=== PATIENT | male | born 1965 | race Caucasian/White ===

== ENCOUNTER → 2020-10-31 10:07 | Outpatient (BNVA) | payer OTHER, SELFPAY | PROVIDERS: PCP Internal Medicine; Visit Provider Urology ==

== ENCOUNTER → 2021-10-31 10:34 | Outpatient (BNVA) | payer OTHER, SELFPAY | PROVIDERS: PCP Internal Medicine; Visit Provider Urology | DX: N40.0 Benign prostatic hyperplasia without lower urinary tract symptoms (principal); R68.82 Decreased libido; C62.90 Malignant neoplasm of unspecified testis, unspecified whether descended or undescended; R97.20 Elevated prostate specific antigen [PSA] | CPT/HCPCS: 51798 ==

== ENCOUNTER 2021-11-13 13:31 | Outpatient (AMB) | payer OTHER, SELFPAY ==
--- NOTE | 2021-11-13 08:21 | A.OFFVIS_ITS ---
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 Accompanied by partner. They are a patient of Dr House. They are seen in the office today for the following urologic conditions. - elevated PSA - testicular cancer - BPH Elevated PSA/Abnormal BETTY:? Current urination involves some degree of urgency Does have high coffee and chocolate intake Remains on prostate combination therapy Will try reducing stimulants Could reduce tamsulosin if responds well to stimulants Has had PSA checked in [place] last PSA 1.9 Discussed targeted biopsy process Continue yearly review ?at 22 had testicular cancer with radiation ?At 45 diagnosed with multiple schwannoma's requiring intermittent resection - followed at [facility] for management, locally with Dr Rea ? Current management is?prostate combination therapy - finasteride and tamsulosin ? Laboratory investigations include?a total PSA evaluation ?02/05 4.7 ?12/07 4.2 ?07/08 4.4, 07/10 1.8, 09/10 2.3 ? Imaging investigations include? a prostate MRI ?Yes 05/09 prostate 45gm ? Individualized Prostate Cancer Risk Calculator?5-10% high risk, Discussion regarding TRUS biopsy performed.? A TRUS biopsy? has ?been performed and is negative 05/09 - 03/02 cores ? Associated conditions? diabetes ?No ? dyslipidemia ?No ? dysuria ?No ? erectile dysfunction ?No ? hematuria ?No ? hypertension ?No ? prostatitis ?No ? renal insufficieny ?No ? urinary retention ?No ? urinary tract infections ?No ? Therapeutic plan will be?continued surveillance.? PFSH Medical History Testicular cancer Weak urinary stream Nocturia Benign prostatic hyperplasia without lower urinary tract symptoms Elevated PSA Surgical History History of surgery Family History Father No problems noted. Mother No problems noted. Social History Patient Tobacco Use Status: Never used Tobacco Review of Systems Const All systems reviewed & are unremarkable except as noted in HPI and below Reports no additional complaints Resp Reports no additional complaints GI Reports no additional complaints Reports as per HPI Musc Reports no additional complaints Physical Exam Telemedicine evaluation Appropriate responses Regular breathing rate and rhythm HEENT Head: Yes normal to inspection Ears: hearing grossly normal bilaterally Eyes General: appearance normal, both eyes and all related structures Neck Neck: Yes normal visual inspection Chest Chest palpation & inspection: normal inspection of the chest Resp Effort & Inspection: normal respiratory effort and able to speak in complete sentences Assessment & Plan Assessment & Plan (1) Testicular cancer: Code(s): C62.90 - Malignant neoplasm of unspecified testis, unspecified whether descended or undescended (2) Erectile dysfunction: Code(s): N52.9 - Male erectile dysfunction, unspecified (3) Low libido: Code(s): R68.82 - Decreased libido Plan planned Patient Instructions: Imaging studies, laboratory and physical exam results were discussed and reviewed in detail. No major barriers to patient understanding were identified. An opportunity to ask questions regarding the treatment plan was provided. All questions were answered. The patient expressed understanding and agreement with the above treatment plan. The patient is aware they should contact our office by phone for worsening of their current condition or the appearance of new urologic symptoms. Compliance is encouraged with any medications and followup testing that is ordered. It is a privilege to participate in the urologic care of your patient. If you have any questions or concerns regarding treatment for the above conditions, or other urologic issues, please do not hesitate to contact me. The office telephone contact is [phone]. This note is constructed using voice recognition software. While every effort has been made to ensure accuracy engineer booster and exhauster errors may have been included. Yours sincerely, Dr Yeison Carrasco MD, LAV[facility] - Urology Providers of Expert, Compassionate Care for the Genitourinary System Telehealth Telehealth Location of provider rendering services: practice address Location of patient: address on file Patient Identification confirmed using: Name, : Yes Telehealth method: voice only Patient verbally consented to treatment: Yes Patient verbally consented to billing insurance company: Yes Patient informed of any privacy concerns related to visit: Yes Coding Level of Care Code Tele Est Pt Level 3 (81153) Diagnoses Testicular cancer C62.90 Erectile dysfunction N52.9 Low libido R68.82
== END 2021-11-13 14:59 | disposition home or self-care (01) ==
LOC: HO.HUSH 13:31
PROVIDERS: PCP Internal Medicine; Visit Provider Urology
DX: C62.90 Malignant neoplasm of unspecified testis, unspecified whether descended or undescended (principal); N52.9 Male erectile dysfunction, unspecified; R68.82 Decreased libido
CPT/HCPCS: 99499

== ENCOUNTER 2022-11-25 11:51 | Outpatient (REF) | payer OTHER, SELFPAY ==
[2022-11-25 14:00] LABS: PSA,Total (Free>4and<10) 2.71 ng/mL (0.00-4.00)
[2022-11-30 14:48] LABS: Testosterone, Free 88.9 pg/mL (35.0-155.0); Testosterone, Total 753 ng/dL (250-1100)
== END 2022-11-25 11:52 | disposition home or self-care (01) ==
LOC: HO.HMGCLDS 11:51
PROVIDERS: Visit Provider Nurse Practitioner Family
DX: Z12.5 Encounter for screening for malignant neoplasm of prostate (principal); N40.0 Benign prostatic hyperplasia without lower urinary tract symptoms
CPT/HCPCS: 36415; 84153; 84402; 84403

== ENCOUNTER 2022-12-22 12:01 | Outpatient (AMB) | payer OTHER, SELFPAY ==
--- NOTE | 2022-12-22 12:03 | MHC.OFFVIS ---
Intake Intake Visit Reasons: 4 wk follow up/ PSA Labs(set) Intake Note: Patient is present for labs follow up (psa 2.71) (testosterone 753) Urology Medications: finasteride, tamsulosin Blood Thinner: none Dermatopathologist Required: No Accompanied by: Self / Same As Patient Allergies penicillin G Allergy (Unknown, Verified 12/22/22 12:05) Unknown HPI HPI Comments History of Present Illness Details Marino is a very pleasant male. He is a patient of patient of Dr. House. He is seen for the following urologic conditions - testicular cancer - elevated PSA - BPH Stable labs Question of erectile issues Trial daily tadalafil Prescription provided He will call useful Continue with finasteride every other day Elevated PSA/Abnormal BETTY:? Current urination involves some degree of urgency Does have high coffee and chocolate intake Remains on prostate combination therapy Will try reducing stimulants Could reduce tamsulosin if responds well to stimulants Has had PSA checked in [place] last PSA 1.9 Discussed targeted biopsy process Continue yearly review ?at 22 had testicular cancer with radiation ?At 45 diagnosed with multiple schwannoma's requiring intermittent resection - followed at [facility] for management, locally with Dr Rea ? Current management is?prostate combination therapy - finasteride and tamsulosin ? Laboratory investigations include?a total PSA evaluation ?02/05 4.7,?12/07 4.2, 07/08 4.4, 07/10 1.8, 09/10 2.3, 12/12 T 753 PSA 2.7 ? Imaging investigations include? a prostate MRI ?Yes 05/09 prostate 45gm ? Individualized Prostate Cancer Risk Calculator?5-10% high risk, Discussion regarding TRUS biopsy performed.? A TRUS biopsy? has ?been performed and is negative 05/09 - 03/02 cores ? Therapeutic plan will be?continued surveillance.? [facility] Medical History Testicular cancer Weak urinary stream Nocturia Benign prostatic hyperplasia without lower urinary tract symptoms Elevated PSA Surgical History History of surgery Family History Father No problems noted. Mother No problems noted. Social History Patient Tobacco Use Status: Never used Tobacco Review of Systems Const Denies chills and Denies fever(s) Card Reports no additional complaints and Denies syncope Resp Denies cough GI Denies abdominal pain and Denies heartburn Reports as per HPI and Denies change in libido Neuro Denies syncope Psych Denies change in libido Endo Denies change in libido Physical Exam Const General: cooperative, healthy appearing, comfortable and no acute distress Orientation/consciousness: patient oriented x3 HEENT Face and sinus: Yes normal facial exam Mouth: moist mucous membranes Neck Neck: Yes normal visual inspection, Yes full ROM and Yes trachea midline Chest Chest palpation & inspection: normal inspection of the chest Resp Effort & Inspection: normal respiratory effort, able to speak in complete sentences and no respiratory distress GI Inspection: Yes normal to inspection Back/Spine/Pelvis Cervical Spine: normal cervical lordosis Thoracic/Lumbar Spine: thoracic and lumbar spine normal to inspection Skin General skin exam: no rashes or lesions noted Neuro General: patient oriented x3, gait normal, tone normal and moves all extremities Extrem General: Yes normal to inspection and Yes capillary refill normal Results AMB Urinalysis, Automated UA Leukoctes 0 Michelle/uL Last Edit by Chhaya Neely on 12/22/22 13:36 UA Nitrite Negative Last Edit by Chhaya Neely on 12/22/22 13:36 UA Urobilinogen 0.2 mg/dL Last Edit by Chhaya Neely on 12/22/22 13:36 UA Protein 0 mg/dL Last Edit by Chhaya Neely on 12/22/22 13:36 UA pH 6.5 Last Edit by Chhaya Neely on 12/22/22 13:36 UA Blood 0 Gavin/uL Last Edit by Chhaya Neely on 12/22/22 13:36 UA Specific Nettie 1.010 Last Edit by Chhaya Neely on 12/22/22 13:36 UA Ketone Negative Last Edit by Chhaya Neely on 12/22/22 13:36 UA Bilirubin 0 mg/dL Last Edit by Chhaya Neely on 12/22/22 13:36 UA Glucose 0 mg/dL Last Edit by Chhaya Neely on 12/22/22 13:36 Results Reviewed Results Reviewed: Laboratory Last Values Urine pH (Auto) 6.5 12/22/22 13:34 Specific Nettie (Auto) 1.010 12/22/22 13:34 Urine Protein (Auto) 0 mg/dL 12/22/22 13:34 Glucose (UA)(Auto) 0 mg/dL 12/22/22 13:34 Urine Ketones (Auto) Negative 12/22/22 13:34 Urine Blood (Auto) 0 Gavin/uL 12/22/22 13:34 Urine Nitrite (Auto) Negative 12/22/22 13:34 Urine Bilirubin (Auto) 0 mg/dL 12/22/22 13:34 Urine Urobilinogen (Auto) 0.2 mg/dL 12/22/22 13:34 Leukocyte Esterase (Auto) 0 Michelle/uL 12/22/22 13:34 Assessment & Plan Assessment & Plan (1) Erectile dysfunction: Code(s): N52.9 - Male erectile dysfunction, unspecified (2) Testicular cancer: Code(s): C62.90 - Malignant neoplasm of unspecified testis, unspecified whether descended or undescended (3) Benign prostatic hyperplasia without lower urinary tract symptoms: Code(s): N40.0 - Benign prostatic hyperplasia without lower urinary tract symptoms Plan Trial daily tadalafil Orders: Orders AMB Urinalysis Automated 12/22/22 Z13.9 - Encounter for screening, unspecified Patient Instructions: Imaging studies, laboratory and physical exam results were discussed and reviewed in detail. No major barriers to patient understanding were identified. An opportunity to ask questions regarding the treatment plan was provided. All questions were answered. The patient expressed understanding and agreement with the above treatment plan. The patient is aware they should contact our office by phone for worsening of their current condition or the appearance of new urologic symptoms. Compliance is encouraged with any medications and followup testing that is ordered. It is a privilege to participate in the urologic care of your patient. If you have any questions or concerns regarding treatment for the above conditions, or other urologic issues, please do not hesitate to contact me. The office telephone contact is [phone]. This note is constructed using voice recognition software. While every effort has been made to ensure accuracy distillery supervisor errors may have been included. Yours sincerely, Dr Yeison Carrasco MD, [facility] - Urology Providers of Expert, Compassionate Care for the Genitourinary System Coding Level of Care Code Est Pt Level 4 (04467) Diagnoses Erectile dysfunction N52.9 Testicular cancer C62.90 Benign prostatic hyperplasia without lower urinary tract symptoms N40.0
== END 2022-12-22 13:11 | disposition home or self-care (01) ==
PROVIDERS: PCP Internal Medicine; Visit Provider Urology
DX: N52.9 Male erectile dysfunction, unspecified (principal); C62.90 Malignant neoplasm of unspecified testis, unspecified whether descended or undescended; N40.0 Benign prostatic hyperplasia without lower urinary tract symptoms
CPT/HCPCS: 99214

== ENCOUNTER → 2022-12-22 12:01 | Outpatient (BNVA) | payer OTHER, SELFPAY | PROVIDERS: PCP Internal Medicine; Visit Provider Nurse Practitioner Family | DX: R97.20 Elevated prostate specific antigen [PSA] (principal); C62.90 Malignant neoplasm of unspecified testis, unspecified whether descended or undescended; N40.0 Benign prostatic hyperplasia without lower urinary tract symptoms | CPT/HCPCS: 81003 ==

== ENCOUNTER 2023-02-24 13:53 | Outpatient (AMB) | payer OTHER, SELFPAY ==
--- NOTE | 2023-02-24 13:56 | A.OFFVIS_ITS ---
Intake Intake Visit Reasons: 6M PSA(set) Intake Note: Patient is Present for Follow Up PSA Urology Medication: Finasteride (3 days a week), Tamsulosin Antibiotic Allergies: Penicillin Blood Thinners: None Allergies penicillin G Allergy (Unknown, Verified 12/22/22 12:05) Unknown HPI HPI Comments History of Present Illness Details Marino is a very pleasant male. He is a patient of Dr House. He is seen for the following urologic conditions. - elevated PSA - testicular cancer - lower urinary tract symptoms - Discussion today about PSA He had some recent variability up to 3.4 but repeat testing showed 2.5 We discussed variability of PSA Continue with finasteride t.i.d. Will also try coming off tamsulosin 2nd issue erectile dysfunction Trial of daily tadalafil Prescription provided Prior T labs 12/12 T 753, FT 89 PSA 2.7 Elevated PSA/Abnormal BETTY:? Current urination involves some degree of urgency Does have high coffee and chocolate intake Remains on prostate combination therapy Will try reducing stimulants Could reduce tamsulosin if responds well to stimulants Has had PSA checked in [place] last PSA 1.9 Discussed targeted biopsy process Continue yearly review ?at 22 had testicular cancer with radiation ?At 45 diagnosed with multiple schwannoma's requiring intermittent resection - followed at [facility] for management, locally with Dr Rea ? Current management is?prostate combination therapy - finasteride and tamsulosin ? Laboratory investigations include?a total PSA evaluation ?02/05 4.7 ?12/07 4.2 ?07/08 4.4, 07/10 1.8, 09/10 2.3 ? Imaging investigations include? a prostate MRI ?Yes 05/09 prostate 45gm ? Individualized Prostate Cancer Risk Calculator?5-10% high risk, Discussion regarding TRUS biopsy performed.? A TRUS biopsy? has ?been performed and is negative 05/09 - 03/02 cores ? Therapeutic plan will be?continued surveillance.? [facility] Medical History Testicular cancer Weak urinary stream Nocturia Benign prostatic hyperplasia without lower urinary tract symptoms Elevated PSA Surgical History History of surgery Family History Father No problems noted. Mother No problems noted. Social History Patient Tobacco Use Status: Never used Tobacco Review of Systems Const Denies chills and Denies fever(s) Card Reports no additional complaints and Denies syncope Resp Denies cough GI Denies abdominal pain and Denies heartburn Reports as per HPI and Denies change in libido Neuro Denies syncope Psych Denies change in libido Endo Denies change in libido Physical Exam Const General: cooperative, healthy appearing, comfortable and no acute distress Orientation/consciousness: patient oriented x3 HEENT Face and sinus: Yes normal facial exam Mouth: moist mucous membranes Neck Neck: Yes normal visual inspection, Yes full ROM and Yes trachea midline Chest Chest palpation & inspection: normal inspection of the chest Resp Effort & Inspection: normal respiratory effort, able to speak in complete sentences and no respiratory distress GI Inspection: Yes normal to inspection Back/Spine/Pelvis Cervical Spine: normal cervical lordosis Thoracic/Lumbar Spine: thoracic and lumbar spine normal to inspection Skin General skin exam: no rashes or lesions noted Neuro General: patient oriented x3, gait normal, tone normal and moves all extremities Extrem General: Yes normal to inspection and Yes capillary refill normal Assessment & Plan Assessment & Plan (1) Erectile dysfunction: Code(s): N52.9 - Male erectile dysfunction, unspecified Plan Six month follow-up Orders: Orders Prostate Specific Antigen 6 Months R97.20 - Elevated prostate specific antigen [PSA] Medications: New tadalafil 5 mg PO DAILY 30 days 30 tabs 1RF sexual activity N52.9 - Male erectile dysfunction, unspecified Patient Instructions: Imaging studies, laboratory and physical exam results were discussed and reviewed in detail. No major barriers to patient understanding were identified. An opportunity to ask questions regarding the treatment plan was provided. All questions were answered. The patient expressed understanding and agreement with the above treatment plan. The patient is aware they should contact our office by phone for worsening of their current condition or the appearance of new urologic symptoms. Compliance is encouraged with any medications and followup testing that is ordered. It is a privilege to participate in the urologic care of your patient. If you have any questions or concerns regarding treatment for the above conditions, or other urologic issues, please do not hesitate to contact me. The office telephone contact is [phone]. This note is constructed using voice recognition software. While every effort h as been made to ensure accuracy human factors specialist errors may have been included. Yours sincerely, Dr Yeison Carrasco MD, [facility] - Urology Providers of Expert, Compassionate Care for the Genitourinary System Coding Level of Care Code Est Pt Level 4 (50201) Diagnoses Erectile dysfunction N52.9
== END 2023-02-24 14:44 | disposition home or self-care (01) ==
PROVIDERS: PCP Internal Medicine; Visit Provider Urology
DX: N52.9 Male erectile dysfunction, unspecified (principal)
CPT/HCPCS: 99214

== ENCOUNTER → 2023-02-24 13:53 | Outpatient (BNVA) | payer OTHER, SELFPAY | PROVIDERS: PCP Internal Medicine; Visit Provider Urology ==

== ENCOUNTER 2023-09-14 13:50 | Outpatient (AMB) | payer BC, SELFPAY ==
--- NOTE | 2023-09-14 13:44 | MHC.OFFVIS ---
Intake Visit Reasons: 6m/PSA(set) Intake Note: Patient is present for 6 month f/u and PSA Urology Medication:tamsulosin,finasteride,tadalafil Antibiotic Allergy:penicillin Blood Thinner:none Public Administration Teacher Required: No Allergies penicillin G Allergy (Unknown, Verified 09/14/23 13:47) Unknown Medication List - Last Reconciled 09/14/23 by Yeison Carrasco MD albuterol sulfate 90 mcg/actuation 2 puffs inhalation QID PRN finasteride 5 mg PO DAILY 90 days gabapentin 300 mg PO TID hydrocodone-acetaminophen 5-325 mg 1 tab PO DAILY PRN lorazepam 0.5 mg PO BEDTIME PRN rosuvastatin 20 mg PO DAILY tadalafil 5 mg PO DAILY 90 days tadalafil 10 mg PO ONCE PRN 30 days tamsulosin 0.4 mg PO BEDTIME 90 days HPI Comments Details: Marino is a very pleasant male. He is a patient of Dr House. He is seen for the following urologic conditions. - elevated PSA - testicular cancer - lower urinary tract symptoms Telemedicine Evaluation 15 min Consultation DoxSun Number Veto Video PSA remains low. Finasteride 3 times per week Good response to daily tadalafil. Interested in trying on demand. Has had increased nicotine intake. Discussed moderating. Prior T labs 12/12 T 753, FT 89 PSA 2.7 Elevated PSA/Abnormal BETTY:? Current urination involves some degree of urgency Does have high coffee and chocolate intake Remains on prostate combination therapy Will try reducing stimulants Could reduce tamsulosin if responds well to stimulants Has had PSA checked in [place] last PSA 1.9 Discussed targeted biopsy process Continue yearly review ?at 22 had testicular cancer with radiation ?At 45 diagnosed with multiple schwannoma's requiring intermittent resection - followed at [facility] for management, locally with Dr Rea ? Current management is?prostate combination therapy - finasteride and tamsulosin ? Laboratory investigations include?a total PSA evaluation ?02/05 4.7, 12/07 4.2, 07/08 4.4, 07/10 1.8, 09/10 2.3, 09/12 2.3 ? Imaging investigations include? a prostate MRI ?Yes 05/09 prostate 45gm ? Individualized Prostate Cancer Risk Calculator?5-10% high risk, Discussion regarding TRUS biopsy performed.? A TRUS biopsy? has ?been performed and is negative 05/09 - 03/02 cores ? Therapeutic plan will be?continued surveillance.? PFSH Medical History Testicular cancer Weak urinary stream Nocturia Benign prostatic hyperplasia without lower urinary tract symptoms Elevated PSA Surgical History History of surgery Family History Father No problems noted. Mother No problems noted. Social History Patient Tobacco Use Status: Never used Tobacco Review of Systems Const All systems reviewed & are unremarkable except as noted in HPI and below Reports no additional complaints Resp Reports no additional complaints GI Reports no additional complaints Reports as per HPI Musc Reports no additional complaints Physical Exam Telemedicine evaluation Appropriate responses Regular breathing rate and rhythm HEENT Head: Yes normal to inspection Ears: hearing grossly normal bilaterally Eyes General: appearance normal, both eyes and all related structures Neck Neck: Yes normal visual inspection Chest Chest palpation & inspection: normal inspection of the chest Resp Effort & Inspection: normal respiratory effort and able to speak in complete sentences Telehealth Telehealth Telehealth Platform: [facility] Location of provider rendering services: practice address Location of patient: address on file Patient Identification confirmed using: Name, : Yes Telehealth method: video Patient verbally consented to treatment: Yes Patient verbally consented to billing insurance company: Yes Patient informed of any privacy concerns related to visit: Yes Minutes spent on Phone/Video with Pt.: 15 Assessment & Plan Assessment & Plan (1) Erectile dysfunction: Code(s): N52.9 - Male erectile dysfunction, unspecified Category: Medical (2) Elevated PSA: Code(s): R97.20 - Elevated prostate specific antigen [PSA] Category: Medical Plan Six-month follow-up PSA Orders: Orders Prostate Specific Antigen 6 Months R97.20 - Elevated prostate specific antigen [PSA] Medications: New tadalafil as needed 10 mg PO ONCE 30 days PRN 30 tabs 1RF sexual activity N52.9 - Male erectile dysfunction, unspecified Changed From tadalafil 5 mg PO DAILY 30 days 30 tabs 5RF sexual activity N52.9 - Male erectile dysfunction, unspecified To tadalafil 5 mg PO DAILY 90 days 90 tabs 1RF sexual activity N52.9 - Male erectile dysfunction, unspecified Patient Instructions: Imaging studies, laboratory and physical exam results were discussed and reviewed in detail. No major barriers to patient understanding were identified. An opportunity to ask questions regarding the treatment plan was provided. All questions were answered. The patient expressed understanding and agreement with the above treatment plan. The patient is aware they should contact our office by phone for worsening of their current condition or the appearance of new urologic symptoms. Compliance is encouraged with any medications and followup testing that is ordered. It is a privilege to participate in the urologic care of your patient. If you have any questions or concerns regarding treatment for the above conditions, or other urologic issues, please do not hesitate to contact me. The office telephone contact is [phone]. This note is constructed using voice recognition software. While every effort has been made to ensure accuracy solar energy specialist errors may have been included. Yours sincerely, Dr Yeison Carrasco MD, [facility] - Urology Providers of Expert, Compassionate Care for the Genitourinary System Coding Level of Care Code Tele Est Pt Level 3 (01168) Diagnoses Erectile dysfunction N52.9 Elevated PSA R97.20
--- OUTSIDE RECORDS SUMMARY | 2023-09-16 08:03 | XMS_ITS | Continuity of Care Document ---
Author Organization [facility] Address [address] [place] [address]- Care Team Providers Care Flower Buncher Or Picker Name Role Phone Haley House MD Primary Care Physician Encounter [facility] Date(s): 02/15/23 - 03/17/23 [facility] [address] [place] [address]- Attending Physician: Trinh Solis Admitting Physician: Trinh Solis Referring Physician: AdmtrTrinh Allergies, Adverse Reactions, Alerts Substance Reaction Severity Status penicillin stomach upset Active Latex itching Active Immunizations Given and Recorded Vaccine Date Status Refusal Reason influenza virus vaccine, inactivated 02/24/22 Amador rded influenza virus vaccine, inactivated 02/10/20 Amador rded influenza virus vaccine, inactivated 02/09/19 Give n influenza virus vaccine, inactivated 1 02/07/18 Gi sanjeev influenza virus vaccine, inactivated 01/22/17 Give n influenza virus vaccine, inactivated 2 12/20/15 Gi sanjeev influenza virus vaccine, inactivated 03/18/15 Amador rded influenza virus vaccine, inactivated 02/19/15 Amador rded influenza virus vaccine, inactivated 03/14/13 Amador rded influenza virus vaccine, inactivated 12/12/10 Give n influenza virus vaccine, inactivated 01/18/09 Give n zoster vaccine, inactivated 03/05/21 Recorded zoster vaccine, inactivated 10/10/20 Recorded SARS-CoV-2 (COVID-19) mRNA BNT-162b2 vac 02/28/21 Recorded SARS-CoV-2 (COVID-19) mRNA BNT-162b2 vac 06/04/20 Recorded SARS-CoV-2 (COVID-19) mRNA BNT-162b2 vac 05/12/20 Recorded tetanus/diphtheria/pertussis, acel(Tdap) 10/10/20 Recorded tetanus/diphtheria/pertussis, acel(Tdap) 07/03/10 Given Influenza Virus Vaccine (oldterm) 02/09/20 Recorde d Afluria (oldterm) 3 12/26/13 Recorded FluLaval (oldterm) 4 02/22/12 Given FluLaval (oldterm) 12/19/09 Given Pneumovax 23 (oldterm) 12/12/10 Given hepatitis B adult vaccine 07/03/10 Given Hepatitis B Vaccine (old term) 5 11/01/07 Given Hepatitis B Vaccine (old term) 09/27/07 Given 1Result Comment: [02/07/2018] [facility] [id number] 2Result Comment: [12/20/2015] [facility] 3Result Comment: [12/28/2013] [facility] 4Admin Note: Gave the VIS 09-21-2011 5Admin Note: [employer] Medications acetaminophen-HYDROcodone 325 mg-5 mg oral tablet 1 tablet, By Mouth, Daily, PRN Pain , Severe, CSA PRN, # 30 tablet, 0 Refills, Maintenance, 01/29/23 10:05:00 EST, [facility]/pharmacy #[id number], PARTIAL FILL UPON PATIENT REQUEST, 1 tablet By Mouth Daily,PRN:Pain , Severe,Instr:CSA PRN, 177.8, cm, 01/06/23 15:0... Start Date: 01/29/23 Status: Ordered Albuterol (Eqv-ProAir HFA) 90 mcg/inh inhalation aerosol 2 puffs, Inhalation, 4 times a day, PRN NEEDED FOR WHEEZING, # 8.5 each, 5 Refills, Maintenance,03/16/23 15:34:00 EST, [id number], 30, INHALE 2 PUFFS BY MOUTH 4 TIMES A DAY NEEDED FOR WHEEZING, 177.8, cm, 01/06/23 15:01:00 EDT, Height, 79.... Start Date: 03/16/23 Status: Ordered aspirin 81 mg oral capsule 1 capsule = 81 mg, By Mouth, Daily, # 30 capsule, 0 Refills, Maintenance, 09/05/21 10:45:00 EDT, Partial fill upon patient request if the prescription is for a schedule II opioid drug. Start Date: 09/05/21 Status: Ordered B 100 Complex By Mouth, Daily, 0 Refills, Maintenance, 09/19/21 10:17:00 EDT, Partial fill upon patient request if the prescription is for a schedule II opioid drug. Start Date: 09/19/21 Status: Ordered finasteride 5 mg oral tablet 1 tablet = 5 mg, By Mouth, Daily at bedtime, # 90 tablet, 3 Refills, Maintenance, 07/09/22 9:11:00 EDT, Tablet, [facility]/pharmacy #[id number], Partial fill upon patient request if the prescription is for a schedule II opioid drug., 177.8, cm, 07/09/22 8:44:00 ED... Start Date: 07/09/22 Status: Ordered Flovent HFA 110 mcg/inh inhalation aerosol 2 puffs, Inhalation, 2 times a day, # 1 each, 11 Refills, Maintenance, 01/06/23 15:38:00 EDT, Aerosol, [facility]/pharmacy #[id number], Partial fill upon patient request if the prescription is for a schedule II opioid drug., 177.8, cm, 01/06/23 15:01:00 EDT, Heigh... Start Date: 01/06/23 Status: Ordered gabapentin 300 mg oral capsule 1, capsule, By Mouth, 3 times a day, # 270 capsule, Refills 11, Tot. Refills 11, Maintenance, 01/28/23 17:35:00 EST, Route to Pharmacy Electronically, [facility]/pharmacy #[id number], 177.8, cm, 01/06/23 15:01:00EDT, Height, 79.7, kg, 08/19/22 8:33:00 EDT, Dry We... Start Date: 01/28/23 Status: Ordered ibuprofen 800 mg oral tablet 800 mg, 1, tablet, By Mouth, 3 times a day, # 90 tablet, Refills 0, Maintenance, 04/26/20 13:14:00 EST, Partial fill upon patient request if the prescription is for a schedule II opioid drug. Start Date: 04/26/20 Status: Ordered LORazepam 0.5 mg oral tablet See Instructions, TAKE 1 TABLET BY MOUTH AT BEDTIME; CSA PRN, # 30 tablet, 0 Refills, Soft Stop, 01/29/23 10:04:00 EST, [facility]/pharmacy #[id number], 177.8, cm, 01/06/23 15:01:00 EDT, Height, 79.7, kg, 08/19/22 8:33:00 EDT, Dry Weight Start Date: 01/29/23 Status: Ordered Pulmicort Respules 0.5 mg/2 mL inhalation suspension 0.5 mg, 2, mL, Neb, 2 times a day, # 120 mL, Refills 3, Tot. Refills 3, Maintenance, 01/06/23 15:41:00 EDT, Suspension, Route to Pharmacy Electronically, [id number], [facility]/pharmacy #[id number], 177.8, cm, 01/06/23 15:01:00 EDT, Heigh... Start Date: 01/06/23 Status: Ordered Readi-Cat 2 Smoothie Banana 2% oral suspension See Instructions, 1st bottle 6 hours prior and 2 nd bottle 90 min prior to scan, # 2 each, 0 Refills, Maintenance, 01/14/23 13:11:00 EDT, [facility]/pharmacy #[id number], Partial fill upon patient request if the prescription is for a schedule II opioid drug., 1st... Start Date: 01/14/23 Status: Ordered rosuvastatin 20 mg oral tablet 1 tablet = 20 mg, By Mouth, Daily at bedtime, # 90 tablet, 3 Refills, Maintenance, 07/09/22 9:08:00EDT, Tablet, [facility]/pharmacy #0517, Partial fill upon patient request if the prescription is for a schedule II opioid drug., 177.8, cm, 07/09/22 8:44:00 E... Start Date: 07/09/22 Status: Ordered Tylenol 325 mg oral tablet 975 mg, 3, tablet, By Mouth, Every 6 hours, PRN, Refills 0, Maintenance, Pain , Mild, 11/29/19 8:01:00 EDT Start Date: 11/29/19 Status: Ordered Problem List Condition Confirmation Course Effective Dates Status Health Status Informant Abdominal pain Confirmed Active Asthma Confirmed Stable Active Back pain Confirmed 10/20/10 Active Prostatic hypertrophy Confirmed Active Coronary artery disease Confirmed Active Mucoid cyst, joint distal phalynx right thumb Confirmed 05/18/18 Active History of right shoulder replacement Confirmed Active Heartburn Confirmed Active Controlled Substance Agreement Confirmed Active History of basal cell carcinoma Confirmed Active History of testicular cancer Confirmed Active Hypercholesterolemia Confirmed 09/27/07 Active Seasonal allergic rhinitis Confirmed Active Thyroid nodule Confirmed Active Social History Social History Type Response Smoking Status Never smoker entered on: 04/14/13 Sex Patient Care team information Care Team Personnel Name: Harsh SOLANO, Haley Bowman Position: [facility] Physician - Primary Care Member Role: PCP Address: Address: [address] [place] [address] [place] [address]- Name: Salvador Patiño MD Position: [facility] Physician - Oncology Member Role: Lifetime Consulting Physician Address: Address: [address] [place] [address] for Cancer Care [facility] [place] [address]- Care Team Related Persons Name: ANGELIA PEÑA Address: home [address] [place] [address] Name: GRACE GARZA Address: home [address] [place] [address] Name: GRACE VERNON
--- OUTSIDE RECORDS SUMMARY | 2023-09-16 08:03 | XMS_ITS | Continuity of Care Document ---
Author Organization [facility] Address [address] [place] [address]- Care Team Providers Care Linux Server Engineer Name Role Phone Haley House MD Primary Care Physician [phone] Encounter [facility] Date(s): 12/15/21 - 01/14/22 [facility] [address] [place] [id number] Attending Physician: Admtr, Trinh Admitting Physician: AdmtrTrinh Referring Physician: Admtr, Ar8 Allergies, Adverse Reactions, Alerts Substance Reaction Severity Status penicillin stomach upset Active Latex itching Active Immunizations Given and Recorded Vaccine Date Status Refusal Reason zoster vaccine, inactivated 03/05/21 Recorded SARS-CoV-2 (COVID-19) mRNA BNT-162b2 vac 02/28/21 Recorded SARS-CoV-2 (COVID-19) mRNA BNT-162b2 vac 06/04/20 Recorded SARS-CoV-2 (COVID-19) mRNA BNT-162b2 vac 05/12/20 Recorded tetanus/diphtheria/pertussis, acel(Tdap) 10/10/20 Recorded tetanus/diphtheria/pertussis, acel(Tdap) 07/03/10 Given influenza virus vaccine, inactivated 02/10/20 Amador rded [...] influenza virus vaccine, inactivated 01/18/09 Give n Influenza Virus Vaccine (oldterm) 02/09/20 Recorde d Afluria (oldterm) 3 12/26/13 Recorded FluLaval (oldterm) 4 02/22/12 Given FluLaval (oldterm) 12/19/09 Given Pneumovax 23 (oldterm) 12/12/10 Given hepatitis B adult vaccine 07/03/10 Given Hepatitis B Vaccine (old term) 5 11/01/07 Given Hepatitis B Vaccine (old term) 09/27/07 Given 1Result Comment: [02/07/2018] [facility] [id number] 2Result Comment: [12/20/2015] [facility] 3Result Comment: [12/28/2013] [facility] 4Admin Note: Gave the VIS 09-21-2011 5Admin Note: [employer] Medications acetaminophen-HYDROcodone 325 mg-5 mg oral tablet 1 tablet, By Mouth, Daily, PRN Pain , Severe, CSA PRN, # 30 tablet, 0 Refills, Maintenance, 01/02/22 17:48:00 EDT, [id number], PARTIAL FILL UPON PATIENT REQUEST, 1 tablet By Mouth Daily,PRN:Pain , Severe,Instr:CSA PRN, 01/02/22, 177.8, cm, ... Start Date: 01/02/22 Status: Ordered Albuterol (Eqv-ProAir HFA) 90 mcg/inh inhalation aerosol 2 puffs, Inhalation, 4 times a day, PRN NEEDED FOR WHEEZING, # 18 each, 5 Refills, 10/27/21 17:00:00 EDT, [facility]/pharmacy #0517, 16, 2 puffs Inhalation 4 times a day,PRN: NEEDED FOR WHEEZING, 177.8, cm, 09/19/21 12:16:00 EDT, Height, 97.6, kg, 09/19... Start Date: 10/27/21 Status: Ordered aspirin 81 mg oral capsule [...] Mouth, Daily at bedtime, # 90 tablet, 0 Refills, Maintenance, 02/09/19 10:06:15EST, Tablet Start Date: 02/09/19 Status: Ordered gabapentin 300 mg oral capsule 1, capsule, By Mouth, 3 times a day, # 270 capsule, Refills 1, Route to Pharmacy Electronically, [facility] STORE 40435, 177.8, cm, 08/20/21 12:43:00 EDT, Height, 80.5, kg, 11/29/19 17:05:00 EDT, Dry Weight Start Date: 08/29/21 Status: Ordered ibuprofen 800 mg oral tablet [...] # 30 tablet, 0 Refills, Soft Stop, 01/02/22 17:48:00 EDT, [facility]/pharmacy #[id number], 01/02/22, 177.8, cm, 12/15/21 9:13:00 EDT, Height, 97.6, kg, 09/19/21 12:16:00 EDT, Dry Weight Start Date: 01/02/22 Status: Ordered rosuvastatin 20 mg oral capsule 1 capsule = 20 mg, By Mouth, Daily, # 90 capsule, 3 Refills, Maintenance, 08/11/21 13:28:00 EDT, Capsule, [facility]/pharmacy #0517, Partial fill upon patient request if the prescription is for a schedule II opioid drug., 177.8, cm, 08/11/21 13:07:00 EDT, He... Start Date: 08/11/21 Stop Date: 08/06/22 Status: Ordered tamsulosin 0.4 mg oral capsule 0.4 mg, 1, capsule, By Mouth, Daily at bedtime, # 30 capsule, Refills 0, Maintenance, 11/23/19 9:51:00 EDT Start Date: 11/23/19 Status: Ordered Tylenol 325 mg oral tablet 975 mg, 3, tablet, By Mouth, Every 6 hours, PRN, Refills 0, Maintenance, Pain , Mild, 11/29/19 8:01:00 EDT Start Date: 11/29/19 Status: Ordered Problem List Condition Confirmation Course Effective Dates Status Health Status Informant Asthma Confirmed Stable Active Back pain Confirmed 10/20/10 Active Prostatic hypertrophy Confirmed Active Mucoid cyst, joint distal phalynx [...] on: 04/14/13 Sex Patient Care team information Personnel Name: Harsh SOLANO, Haley Bowman Address: Address: [address] [place] [address] Primary Care [place], [place] [address]
--- OUTSIDE RECORDS SUMMARY | 2023-09-16 08:03 | XMS_ITS | Continuity of Care Document ---
Author Organization [facility] Address [address] [place] [address]- Care Team Providers Care Flat Grinder Operator Name Role Phone Haley House MD Primary Care Physician Encounter [facility] Date(s): 08/19/21 - 09/18/21 [facility] [address] [place] [address]- [place] Allergies, Adverse Reactions, Alerts Substance Reaction Severity [...] FluLaval (oldterm) 4 02/22/12 Given FluLaval (oldterm) 9/30/10 Given Pneumovax 23 (oldterm) 12/12/10 Given hepatitis B adult vaccine 07/03/10 Given Hepatitis B Vaccine (old term) 5 11/01/07 Given Hepatitis B Vaccine (old term) 09/27/07 Given 1Result Comment: [02/07/2018] [facility] [id number] 2Result Comment: [12/20/2015] [facility] 3Result Comment: [12/28/2013] [facility] 4Admin Note: Gave the VIS 09-21-2011 5Admin Note: [employer] Medications aspirin 81 mg oral capsule 1 capsule = 81 mg, By Mouth, Daily, # 30 capsule, 0 Refills, Maintenance, 09/05/21 10:45:00 EDT, Partial fill upon patient request if the prescription is for a schedule II opioid drug. Start Date: 09/05/21 Status: Ordered rosuvastatin 20 mg oral capsule 1 capsule = 20 mg, By Mouth, Daily, # 90 capsule, 3 Refills, Maintenance, 08/11/21 13:28:00 EDT, Capsule, [facility]/pharmacy #[id number], Partial fill upon patient request if [...] Date: 11/29/19 Status: Ordered Problem List Condition Effective Dates Status Health Status Inform ant Asthma(Confirmed)(Stable) Active Back pain(Confirmed) 10/20/10 Active Prostatic hypertrophy(Confirmed) Active Mucoid cyst, joint distal ph alynx right thumb(Confirmed) 05/18/18 Active History of right shoulder replacement(Confirmed) Active Heartburn(Confirmed) Active Controlled Substance Agreement(Confirmed) Active History of basal cell carcinoma(Confirmed) Active History of testicular cancer(Confirmed) Active Hypercholesterolemia(Confirmed) 09/27/07 Active Seasonal allergic rhinitis(Confirmed) Active Thyroid nodule(Confirmed) Active Social History Social History Type Response Smoking Status Never smoker entered on: 04/14/13 Sex
--- OUTSIDE RECORDS SUMMARY | 2023-09-16 08:03 | XMS_ITS | Continuity of Care Document ---
Author Organization [facility] Address [address] [place] [address]- Care Team Providers Care Director Decision Support Name Role Phone Haley House MD Primary Care Physician [phone] Encounter [facility] Date(s): 06/15/22 - 07/15/22 [facility] [address] [place] [address] Allergies, Adverse Reactions, Alerts Substance Reaction Severity [...] Give n zoster vaccine, inactivated 03/05/21 Recorded SARS-CoV-2 (COVID-19) [...] (old term) 09/27/07 Given 1Result Comment: [02/07/2018] [facility] [id number] 2Result Comment: [12/20/2015] [facility] 3Result Comment: [12/28/2013] [facility] 4Admin Note: Gave the VIS 09-21-2011 5Admin Note: [employer] Medications acetaminophen-HYDROcodone 325 mg-5 mg oral tablet 1 tablet, By Mouth, Daily, PRN Pain , Severe, CSA PRN, # 30 tablet, 0 Refills, Maintenance, 06/18/22 19:51:00 EDT, [facility]/pharmacy #[id number], PARTIAL FILL UPON PATIENT REQUEST, 1 tablet By Mouth Daily,PRN:Pain , Severe,Instr:CSA PRN, 177.8, cm, 12/15/21 9:13... Start Date: 06/18/22 Status: Ordered Albuterol (Eqv-ProAir HFA) 90 mcg/inh inhalation aerosol 2 puffs, Inhalation, 4 times a day, PRN NEEDED FOR WHEEZING, # 8.5 each, 5 Refills, Maintenance,02/01/22 10:10:00 EST, [facility] STORE 66781, 28, INHALE 2 PUFFS FOUR TIMES DAILY NEEDED FOR WHEEZING,177.8, cm, 12/15/21 9:13:00 EDT, Height, 97.6, kg,... Start Date: 02/01/22 Status: Ordered aspirin 81 mg oral capsule [...] 3 Refills, Maintenance, 07/09/22 9:11:00 EDT, Tablet, [facility]/pharmacy #0517, Partial fill upon patient request if the prescription is for a schedule II opioid drug., 177.8, cm, 07/09/22 8:44:00 ED... Start Date: 07/09/22 Status: Ordered gabapentin 300 mg oral capsule 1, capsule, By Mouth, 2 times a day, # 270 capsule, Refills 1, Route to Pharmacy Electronically, [facility] 19985, 177.8, cm, 08/20/21 12:43:00 EDT, Height, 80.5, [...] # 30 tablet, 0 Refills, Soft Stop, 06/18/22 19:51:00 EDT, [facility]/pharmacy #0517, 177.8, cm, 12/15/21 9:13:00 EDT, Height, 97.6, kg, 09/20/2211:16:00 EDT, Dry Weight Start Date: 06/18/22 Status: Ordered rosuvastatin 20 mg oral tablet 1 tablet = 20 mg, By Mouth, Daily at bedtime, # 90 tablet, 3 Refills, Maintenance, 07/09/22 9:08:00EDT, Tablet, [facility]/pharmacy #0517, Partial fill upon patient request if the prescription is for a schedule II opioid drug., 177.8, cm, 07/09/22 8:44:00 E... Start Date: 07/09/22 Status: Ordered tamsulosin 0.4 mg oral capsule 1, capsule, By Mouth, Daily at bedtime, # 90 capsule, Refills 3, Tot. Refills 3, Maintenance, 07/09/22 9:10:00 EDT, Route to Pharmacy Electronically, [facility]/pharmacy #[id number], 177.8, cm, 07/09/22 8:44:00 EDT, Height, 97.6, kg, 09/19/21 12:16:00 EDT, Dry Weight Start Date: 07/09/22 Stop Date: 07/04/23 Status: Ordered Tylenol 325 mg oral tablet [...] Care team information Care Team Personnel Name: Haley House MD Position: [facility] Primary Care Physician Member Role: PCP Address: Address: [address] [place] [address] [place] [address]- Name: Salvador Patiño MD Position: [facility] Oncology MD Member Role: Lifetime Consulting Physician Address: Address: [address] [place] [address] for Cancer Care [facility] Hematology Oncology [address] Care Team Related Persons Name: ANGELIA PEÑA Address: home [address] [place] [address] Name: GRACE GARZA Address: [address] [place] [address] Name: GRACE VERNON
--- OUTSIDE RECORDS SUMMARY | 2023-09-16 08:03 | XMS_ITS | Continuity of Care Document ---
Author Organization [facility] Address [address] [place] [address]- Care Team Providers Care Tram Operator Name Role Phone Haley House MD Primary Care Physician Encounter [facility] Date(s): 09/19/21 - 10/19/21 [facility] [address] [place] [address]- [place] Allergies, Adverse Reactions, Alerts Substance Reaction [...] (old term) 09/27/07 Given 1Result Comment: [02/07/2018] [facility] [id number] 2Result Comment: [12/20/2015] [facility] 3Result Comment: [12/28/2013] [...] opioid drug. Start Date: 09/19/21 Status: Ordered rosuvastatin 20 mg oral capsule 1 capsule = 20 mg, By Mouth, Daily, # 90 capsule, 3 Refills, Maintenance, 08/11/21 13:28:00 EDT, Capsule, [facility]/pharmacy #0517, Partial fill upon patient request if [...]
--- OUTSIDE RECORDS SUMMARY | 2023-09-16 08:03 | XMS_ITS | Continuity of Care Document ---
Author Organization [facility] Address [address] [place] [address]- Care Team Providers Care Unit Trust Manager Name Role Phone Haley House MD Primary Care Physician [phone] Encounter [facility] Date(s): 10/20/21 - 11/19/21 [facility] [address] [place] [id number] Allergies, Adverse Reactions, Alerts Substance Reaction [...] (old term) 09/27/07 Given 1Result Comment: [02/07/2018] [facility] [id number] 2Result Comment: [12/20/2015] [facility] 3Result Comment: [12/28/2013] [facility] 4Admin Note: Gave the VIS 09-21-2011 5Admin Note: [employer] Medications acetaminophen-HYDROcodone 325 mg-5 mg oral tablet 1 tablet, By Mouth, Daily, PRN Pain , Severe, CSA PRN, # 30 tablet, 0 Refills, Maintenance, 10/28/21 16:59:00 EDT, [id number], PARTIAL FILL UPON PATIENT REQUEST, 1 tablet By Mouth Daily,PRN:Pain , Severe,Instr:CSA PRN, 10/28/21, 177.8, cm, ... Start Date: 10/28/21 Status: Ordered Albuterol (Eqv-ProAir HFA) 90 mcg/inh inhalation aerosol 2 puffs, Inhalation, 4 times a day, PRN NEEDED FOR WHEEZING, # 18 each, 5 Refills, 10/27/21 17:00:00 EDT, [facility], 16, 2 puffs Inhalation 4 times [...] capsule, Refills 1, Route to Pharmacy Electronically, [facility] 31555, 177.8, cm, 08/20/21 12:43:00 EDT, Height, 80.5, [...] # 30 tablet, 0 Refills, Soft Stop, 10/28/21 16:59:00 EDT, [facility]/pharmacy #0517, 10/28/21, 177.8, cm, 09/19/21 12:16:00 EDT, Height, 97.6, kg, 09/19/21 12:16:00 EDT, Dry Weight Start Date: 10/28/21 Status: Ordered rosuvastatin 20 mg oral capsule 1 capsule = 20 mg, By Mouth, Daily, # 90 capsule, 3 Refills, Maintenance, 08/11/21 13:28:00 EDT, Capsule, [facility]/pharmacy #0517, Partial fill upon patient request [...] Status Never smoker entered on: 04/14/13 Sex Care Team Personnel Name: Haley House MD Address: [address] [place] [address] Primary [address]
--- OUTSIDE RECORDS SUMMARY | 2023-09-16 08:03 | XMS_ITS | Continuity of Care Document ---
Author Organization [facility] Address [address] [place] [address]- Care Team Providers Care Comb Capper Name Role Phone Haley House MD Primary Care Physician Encounter [facility] Date(s): 08/11/21 - 09/10/21 [facility] [address] [place] [address]- Attending Physician: Trinh Solis Admitting Physician: Trinh Solis Referring Physician: Trinh Solis Allergies, Adverse Reactions, Alerts Substance Reaction Severity [...] (old term) 09/27/07 Given 1Result Comment: [02/07/2018] [facility] [id number] 2Result Comment: [12/20/2015] [facility] 3Result Comment: [12/28/2013] [...] 3 Refills, Maintenance, 08/11/21 13:28:00 EDT, Capsule, [facility], Partial fill upon patient request if [...]
--- OUTSIDE RECORDS SUMMARY | 2023-09-16 08:03 | XMS_ITS | Continuity of Care Document ---
Author Organization [facility] ter Address [address] [place] [id number] Care Team Providers Care Network Engineering Advisor Name Role Phone Haley House MD Primary Care Physician [phone] Encounter [facility] Date(s): 11/29/19 - 11/30/[address] [address]- [facility] Discharge Disposition: A-D/C Home Attending Physician: Nikko Sanchez MD Admitting Physician: Nikko Sanchez MD Referring Physician: Nikko Sanchez MD Allergies, Adverse Reactions, Alerts Substance Reaction Severity Status penicillin stomach upset Active Latex itching Active Immunizations Given and Recorded Vaccine Date Status Refusal Reason influenza virus vaccine, inactivated 02/09/19 Give n influenza virus vaccine, inactivated 1 02/07/18 Gi sanjeev influenza virus vaccine, inactivated 01/22/17 Give n influenza virus vaccine, inactivated 2 12/20/15 Gi sanjeev influenza virus vaccine, inactivated 02/19/15 Amador rded influenza virus vaccine, inactivated 03/14/13 Amador rded influenza virus vaccine, inactivated 12/12/10 Give n influenza virus vaccine, inactivated 01/18/09 Give n Afluria (oldterm) 3 12/26/13 Recorded FluLaval (oldterm) 4 02/22/12 Given FluLaval (oldterm) 12/19/09 Given Pneumovax 23 (oldterm) 12/12/10 Given tetanus/diphtheria/pertussis, acel(Tdap) 07/03/10 Given hepatitis B adult vaccine 07/03/10 Given Hepatitis B Vaccine (old term) 5 11/01/07 Given Hepatitis B Vaccine (old term) 09/27/07 Given 1Result Comment: [02/07/2018] [facility] [place] [phone] 2Result Comment: [12/20/2015] LANDYRIK 3Result Comment: [12/28/2013] SAY VARGAS 4Admin Note: Gave the VIS 09-21-2011 5Admin Note: [employer] Medications morphine 30 mg/8 to 12 hr oral tablet, extended release 1 tablet = 30 mg, By Mouth, Every 12 hours, # 60 tablet, 0 Refills, Maintenance, 11/29/19 8:01:00 EDT, ER Tablet, [facility]/pharmacy #[id number], Partial fill upon patient request, 177.8, cm, 11/23/19 9:49:00 EDT, Height, 80.45, kg, 11/23/19 9:49:00 EDT, Dry Weight Start Date: 11/29/19 Status: Ordered naproxen 500 mg oral tablet 1 tablet = 500 mg, By Mouth, 2 times a day, for 30 days, # 60 tablet, 1 Refills, Acute 01/28/20 8:01:00 EST, 11/29/19 8:01:00 EDT, Tablet, [facility]/pharmacy #[id number], 177.8, cm, 11/23/19 9:49:00 EDT, Height,80.45, kg, 11/23/19 9:49:00 EDT, Dry Weight Start Date: 11/29/19 Stop Date: 01/28/20 Status: Ordered oxyCODONE 5 mg oral tablet 10 mg, 2, tablet, By Mouth, Every 4 hours, PRN, for 7 days, # 56 tablet, Refills 0, Tot. Refills 0,Acute 12/06/19 8:02:00 EDT, Pain , Moderate, 11/29/19 8:02:00 EDT, Route to Pharmacy Electronically, [facility]/pharmacy #[id number], Partial fill upon patient requ... Start Date: 11/29/19 Stop Date: 12/06/19 Status: Ordered tamsulosin 0.4 mg oral capsule [...] distal ph alynx right thumb(Confirmed) 05/18/18 Active Heartburn(Confirmed) Active Controlled Substance Agreement(Confirmed) Active History of basal cell carcinoma(Confirmed) Active History of testicular cancer(Confirmed) Active Hypercholesterolemia(Confirmed) 09/27/07 Active Seasonal allergic rhinitis(Confirmed) Active Thyroid nodule(Confirmed) Active Vital Signs Most recent to oldest [Reference Range]: 1 2 3 Height 177.80 cm (11/29/19 4:56 PM) 177.80 cm (11/29/19 2:42 PM) 177.80 cm (11/29/19 7:58 AM) Weight 80.5 kg (11/29/19 4:56 PM) 80.5 kg (11/29/19 7:58 AM) 80.45 kg (11/23/19 9:49 AM) Oxygen Saturation [94-100 %] 98 % (11/30/19 7:00 AM) 97 % (11/30/19 4:00 AM) 95 % (11/30/19 1:00 AM) Pulse Rate [55-90 bpm] 68 bpm (11/30/19 7:00 AM) 66 bpm (11/30/19 4:00 AM) 67 bpm (11/30/19 1:00 AM) Body Mass Index [18.5-24.99] 25.46 *H* (11/29/19 4:56 PM) 25.46 *H* (11/29/19 7:58 AM) 25.45 *H* (11/23/19 9:49 AM) Blood Pressure [90-138/55-84 mm Hg] 112/72mm Hg (11/30/19 7:00 AM) 110/69mm Hg (11/30/19 4:00 AM) 124/72mm Hg (11/30/19 1:00 AM) Respiratory Rate [16-30 br/min] 18 br/min (11/30/19 8:55 AM) 18 br/min (11/30/19 8:55 AM) 17 br/min (11/30/19 8:12 AM) Temperature [96.8-100.4 DegF] 98.4 DegF (11/30/19 7:00 AM) 97.9 DegF (11/30/19 4:00 AM) 98 DegF (11/30/19 1:00 AM) Liters per Minute 2 L/min (11/29/19 1:45 PM) 2 L/min (11/29/19 1:00 PM) 2 L/min (11/29/19 12:45 PM) Mode of Delivery (Oxygen) Room air (11/30/19 7:00 AM) Room air (11/30/19 4:00 AM) Room air (11/30/19 1:00 AM) Blood pressure sites Arm, left (11/30/19 7:00 AM) Arm, left (11/30/19 4:00 AM) Arm, left (11/30/19 1:00 AM) Temperature Route Oral (11/30/19 7:00 AM) Oral (11/30/19 4:00 AM) Oral (11/30/19 1:00 AM) Dry Weight 80.5 kg (11/29/19 4:56 PM) 80.5 kg (11/29/19 7:58 AM) 80.45 kg (11/23/19 9:49 AM) Weight Obtained Via Standing scale (11/29/19 7:58 AM) Patient/family stated (11/23/19 9:49 AM) Dry Weight Obtained Via Patient/family s tated (11/23/19 9:49 AM) Social History Social History Type Response Smoking Status Never smoker entered on: 04/14/13 Sex
== END 2023-09-14 14:23 | disposition home or self-care (01) ==
LOC: HO.HUSH 13:51
PROVIDERS: PCP Internal Medicine; Visit Provider Urology
DX: N52.9 Male erectile dysfunction, unspecified (principal); R97.20 Elevated prostate specific antigen [PSA]
CPT/HCPCS: 99213

== ENCOUNTER → 2023-09-14 13:50 | Outpatient (BNVA) | payer BC, SELFPAY | PROVIDERS: PCP Internal Medicine; Visit Provider Urology ==

== ENCOUNTER 2024-04-04 14:48 | Outpatient (AMB) | payer BC, SELFPAY ==
--- NOTE | 2024-04-04 15:02 | MHC.OFFVIS ---
Intake Visit Reasons: 6M PSA(set) Intake Note: Patient is present for 6M PSA Urology Medication:TAMSULOSIN,FINASTERIDE,TADALAFIL Antibiotic Allergy:PENICILLIN G Blood Thinner:NONE Passport Application Examiner Required: No Allergies penicillin G Allergy (Unknown, Verified 04/04/24 15:03) Unknown HPI Comments Details: Marino is a very pleasant male. He is a patient of Dr House. He is seen for the following urologic conditions. - elevated PSA - testicular cancer - lower urinary tract symptoms Finasteride cut back to 3 times per week. PSA slow rise. Repeat in 6 months Good response to daily tadalafil. Interested in trying on demand. Has had increased nicotine intake. Discussed moderating. Prior T labs 12/12 T 753, FT 89 PSA 2.7, 03/14 3.9 Elevated PSA/Abnormal BETTY:? Current urination involves some degree of urgency Does have high coffee and chocolate intake Remains on prostate combination therapy Will try reducing stimulants Could reduce tamsulosin if responds well to stimulants Has had PSA checked in [place] last PSA 1.9 Discussed targeted biopsy process Continue yearly review ?at 22 had testicular cancer with radiation ?At 45 diagnosed with multiple schwannoma's requiring intermittent resection - followed at [facility] for management, locally with Dr Rea ? Current management is?prostate combination therapy - finasteride and tamsulosin ? Laboratory investigations include?a total PSA evaluation ?02/05 4.7, 12/07 4.2, 07/08 4.4, 07/10 1.8, 09/10 2.3, 09/12 2.3 ? Imaging investigations include? a prostate MRI ?Yes 05/09 prostate 45gm ? Individualized Prostate Cancer Risk Calculator?5-10% high risk, Discussion regarding TRUS biopsy performed.? A TRUS biopsy? has ?been performed and is negative 05/09 - 03/02 cores ? Therapeutic plan will be?continued surveillance.? [facility] Medical History Testicular cancer Weak urinary stream Nocturia Benign prostatic hyperplasia without lower urinary tract symptoms Elevated PSA Surgical History History of surgery Family History Father No problems noted. Mother No problems noted. Social History Patient Tobacco Use Status: Never used Tobacco Review of Systems Const Denies chills and Denies fever(s) Card Reports no additional complaints and Denies syncope Resp Denies cough GI Denies abdominal pain and Denies heartburn Reports as per HPI and Denies change in libido Neuro Denies syncope Psych Denies change in libido Endo Denies change in libido Physical Exam Const General: cooperative, healthy appearing, comfortable and no acute distress Orientation/consciousness: patient oriented x3 HEENT Face and sinus: Yes normal facial exam Mouth: moist mucous membranes Neck Neck: Yes normal visual inspection, Yes full ROM and Yes trachea midline Chest Chest palpation & inspection: normal inspection of the chest Resp Effort & Inspection: normal respiratory effort, able to speak in complete sentences and no respiratory distress GI Inspection: Yes normal to inspection Back/Spine/Pelvis Cervical Spine: normal cervical lordosis Thoracic/Lumbar Spine: thoracic and lumbar spine normal to inspection Skin General skin exam: no rashes or lesions noted Neuro General: patient oriented x3, gait normal, tone normal and moves all extremities Extrem General: Yes normal to inspection and Yes capillary refill normal Results AMB Urinalysis, Automated UA Leukoctes 0 Michelle/uL Last Edit by JAGUAR Ayon on 04/04/24 15:10 UA Nitrite Negative Last Edit by JAGUAR Ayon on 04/04/24 15:10 UA Urobilinogen 0.2 mg/dL Last Edit by JAGUAR Ayon on 04/04/24 15:10 UA Protein 0 mg/dL Last Edit by JAGUAR Ayon on 04/04/24 15:10 UA pH 6.0 Last Edit by JAGUAR Ayon on 04/04/24 15:10 UA Blood 0 Gavin/uL Last Edit by JAGUAR Ayon on 04/04/24 15:10 UA Specific Byron 1.010 Last Edit by JAGUAR Ayon on 04/04/24 15:10 UA Ketone Negative Last Edit by JAGUAR Ayon on 04/04/24 15:10 UA Bilirubin 0 mg/dL Last Edit by JAGUAR Ayon on 04/04/24 15:10 UA Glucose 0 mg/dL Last Edit by JAGUAR Ayon on 04/04/24 15:10 Results Reviewed Results Reviewed: Laboratory Last Values Urine pH (Auto) 6.0 04/04/24 15:09 Specific Byron (Auto) 1.010 04/04/24 15:09 Urine Protein (Auto) 0 mg/dL 04/04/24 15:09 Glucose (UA)(Auto) 0 mg/dL 04/04/24 15:09 Urine Ketones (Auto) Negative 04/04/24 15:09 Urine Blood (Auto) 0 Gavin/uL 04/04/24 15:09 Urine Nitrite (Auto) Negative 04/04/24 15:09 Urine Bilirubin (Auto) 0 mg/dL 04/04/24 15:09 Urine Urobilinogen (Auto) 0.2 mg/dL 04/04/24 15:09 Leukocyte Esterase (Auto) 0 Michelle/uL 04/04/24 15:09 Assessment & Plan Assessment & Plan (1) Benign prostatic hyperplasia without lower urinary tract symptoms: Code(s): N40.0 - Benign prostatic hyperplasia without lower urinary tract symptoms Category: Medical (2) Erectile dysfunction: Code(s): N52.9 - Male erectile dysfunction, unspecified Category: Medical (3) Elevated PSA: Code(s): R97.20 - Elevated prostate specific antigen [PSA] Category: Medical Plan Six-month follow-up PSA tele Orders: Orders AMB Urinalysis Automated 04/04/24 Z13.9 - Encounter for screening, unspecified Prostate Specific Antigen 6 Months R97.20 - Elevated prostate specific antigen [PSA] Patient Instructions: Imaging studies, laboratory and physical exam results were discussed and reviewed in detail. No major barriers to patient understanding were identified. An opportunity to ask questions regarding the treatment plan was provided. All questions were answered. The patient expressed understanding and agreement with the above treatment plan. The patient is aware they should contact our office by phone for worsening of their current condition or the appearance of new urologic symptoms. Compliance is encouraged with any medications and followup testing that is ordered. It is a privilege to participate in the urologic care of your patient. If you have any questions or concerns regarding treatment for the above conditions, or other urologic issues, please do not hesitate to contact me. The office telephone contact is [phone]. This note is constructed using voice recognition software. While every effort has been made to ensure accuracy internet technology manager errors may have been included. Yours sincerely, Dr Yeison Carrasco MD, L[facility] - Urology Providers of Expert, Compassionate Care for the Genitourinary System Coding Level of Care Code Est Pt Level 3 (21477) Diagnoses Benign prostatic hyperplasia without lower urinary tract symptoms N40.0 Erectile dysfunction N52.9 Elevated PSA R97.20
== END 2024-04-04 16:22 | disposition home or self-care (01) ==
PROVIDERS: PCP Internal Medicine; Visit Provider Urology
DX: Z13.9 Encounter for screening, unspecified (principal)
CPT/HCPCS: 99213

== ENCOUNTER → 2024-04-04 14:48 | Outpatient (BNVA) | payer BC, SELFPAY | PROVIDERS: PCP Internal Medicine; Visit Provider Urology | DX: R97.20 Elevated prostate specific antigen [PSA] (principal); N40.0 Benign prostatic hyperplasia without lower urinary tract symptoms; N52.9 Male erectile dysfunction, unspecified | CPT/HCPCS: 81003 ==

== ENCOUNTER 2024-10-03 16:17 | Outpatient (AMB) | payer OTHER, SELFPAY ==
--- NOTE | 2024-10-03 16:17 | A.OFFVIS_ITS ---
Intake Visit Reasons: 6m followup/PSA Intake Note: Patient is present for 6M TELEHEALTH PSA 09/26/24 : 4.0 Urology Medication:TAMSULOSIN,FINASTERIDE,TADALAFIL Antibiotic Allergy:PENICILLIN G Blood Thinner:NONE Back Tender Paper Machine Required: No Accompanied by: Self / Same As Patient Allergies penicillin G Allergy (Unknown, Verified 10/03/24 16:18) Unknown HPI Comments Details: Marino is a very pleasant male. He is a patient of Dr House. He is seen for the following urologic conditions. - elevated PSA - testicular cancer - lower urinary tract symptoms Telemedicine Evaluation 15 min Consultation [employer] Veto Video Slight PSA rise on lower dose finasteride has stabilized at 4.0 we will keep reviewing every six-month Good response to daily tadalafil. Interested in trying on demand. Has had increased nicotine intake. Discussed moderating. Plan prostate MRI in six-month We will continue to track baseline testosterone for Marino's information Prior T labs 12/12 T 753, FT 89 PSA 2.7, 03/14 3.9, 09/13 4.0, Elevated PSA/Abnormal BETTY:? Current urination involves some degree of urgency Does have high coffee and chocolate intake Remains on prostate combination therapy Will try reducing stimulants Could reduce tamsulosin if responds well to stimulants Has had PSA checked in [place] last PSA 1.9 Discussed targeted biopsy process Continue yearly review ?at 22 had testicular cancer with radiation ?At 45 diagnosed with multiple Schwannoma's requiring intermittent resection - followed at [facility] for management, locally with Dr Rea ? Current management is?prostate combination therapy - finasteride and tamsulosin ? Laboratory investigations include?a total PSA evaluation ?02/05 4.7, 12/07 4.2, 07/08 4.4, 07/10 1.8, 09/10 2.3, 09/12 2.3 ? Imaging investigations include? a prostate MRI ?Yes 05/09 prostate 45gm ? Individualized Prostate Cancer Risk Calculator?5-10% high risk, Discussion regarding TRUS biopsy performed.? A TRUS biopsy? has ?been performed and is negative 2/18 - 03/02 cores ? Therapeutic plan will be?continued surveillance.? [facility] Medical History Testicular cancer Weak urinary stream Nocturia Benign prostatic hyperplasia without lower urinary tract symptoms Elevated PSA Surgical History History of surgery Family History Father No problems noted. Mother No problems noted. Social History Patient Tobacco Use Status: Never used Tobacco Review of Systems Const All systems reviewed & are unremarkable except as noted in HPI and below Reports no additional complaints Resp Reports no additional complaints GI Reports no additional complaints Reports as per HPI Musc Reports no additional complaints Physical Exam Telemedicine evaluation Appropriate responses Regular breathing rate and rhythm HEENT Head: Yes normal to inspection Ears: hearing grossly normal bilaterally Eyes General: appearance normal, both eyes and all related structures Neck Neck: Yes normal visual inspection Chest Chest palpation & inspection: normal inspection of the chest Resp Effort & Inspection: normal respiratory effort and able to speak in complete sentences Telehealth Telehealth Telehealth Platform: [employer] Location of provider rendering services: practice address Location of patient: address on file Patient Identification confirmed using: Name, : Yes Telehealth method: voice only Patient verbally consented to treatment: Yes Patient verbally consented to billing insurance company: Yes Patient informed of any privacy concerns related to visit: Yes Minutes spent on Phone/Video with Pt.: 15 Assessment & Plan Assessment & Plan (1) Benign prostatic hyperplasia without lower urinary tract symptoms: Code(s): N40.0 - Benign prostatic hyperplasia without lower urinary tract symptoms Category: Medical (2) Elevated PSA: Code(s): R97.20 - Elevated prostate specific antigen [PSA] Category: Medical (3) Testicular cancer: Code(s): C62.90 - Malignant neoplasm of unspecified testis, unspecified whether descended or undescended Category: Medical Plan Six-month follow-up office imaging and lab work Orders: Orders MR Prostate wo/w con 6 Months R97.20 - Elevated prostate specific antigen [PSA] Testosterone, Free/Total 5 Months R97.20 - Elevated prostate specific antigen [PSA] Prostate Specific Antigen 5 Months R97.20 - Elevated prostate specific antigen [PSA] Medications: Refilled tadalafil 5 mg PO DAILY 90 tabs 1RF sexual activity 90 days N52.9 - Male erectile dysfunction, unspecified Patient Instructions: This note is constructed using voice recognition software. While every effort has been made to ensure accuracy safety coordinator errors may have been included. Imaging studies, laboratory and physical exam results were discussed and reviewed in detail. No major barriers to patient understanding were identified. An opportunity to ask questions regarding the treatment plan was provided. All questions were answered. The patient expressed understanding and agreement with the above treatment plan. The patient is aware they should contact our office by phone for worsening of their current condition or the appearance of new urologic symptoms. Compliance is encouraged with any medications and followup testing that is ordered. It is a privilege to participate in the urologic care of your patient. If you have any questions or concerns regarding treatment for the above conditions, or other urologic issues, please do not hesitate to contact me. The office telephone contact is [phone]. Sincerely, Dr Yeison Carrasco MD, [facility] - Urology Compassionate Specialist Care for the Genitourinary System Coding Level of Care Code Tele Est Pt Level 4 (17909) Diagnoses Benign prostatic hyperplasia without lower urinary tract symptoms N40.0 Elevated PSA R97.20 Testicular cancer C62.90
--- OUTSIDE RECORDS SUMMARY | 2024-10-03 16:46 | XMS_ITS | Data Portability ---
Author Organization [place] [facility] Address [address] [place] [id number] Care Team Providers Care C T Tech Name Role Phone RAE WALDRON Primary Care Provider Assessment Encounter Date Assessment Date Assessment LastModified by Organization Details LastModified Time 03/10/2020 03/10/2020 Overview/History : This is a 54-year-old male who [facility] with a past medical history of hypertension, high cholesterol, and childhood testicular cancer and asthma. He had a R shoulder replacement in November and recently finished a Prednisone taper that was prescribed for shoulder pain. He is being seen today with COVID-19 symptoms. He was diagnosed COVID positive on March 06. He reports daily fevers as high as 102-103 degrees, that break with Tylenol. He reports a decreased sense of smell and taste. He denies any trouble breathing, chest pressure or rashes. He is eating and drinking normally, no nausea, vomiting, or diarrhea. He has chest discomfort with coughing- productive cough for green/brown sputum. He just completed a Z-pack prescribed by his PCP. Exam: Vitals: T- 99.8 HR-90 RR- 20 BP- 122/76 SpO2- 95% RA Patient is alert, nontoxic appearing, in no apparent distress Normal heart sounds, no edema Lung sounds diminished throughout, no increased work of breathing Abdomen soft nontender positive bowel sounds, no rashes. DDx considered, but not limited to: Covid 19- confirmed, possible post viral pneumonia, given persistent fevers and productive sputum. Flu/RSV less likely given he is Covid (+). ACS/PE considered however he is not tachycardic or hypoxic, chest discomfort is intermittent/repro ducible & seems to be soreness from coughing, no diaphoresis or chest pressure, pain does not radiate. Work up/Results: CXR ordered Plan/Discussion: Discussed with patient his symptoms are consistent with COVID-19. Instructed to continue Tylenol, may take 650mg q6hrs scheduled around the clock. Discussed staying hydrated, self proning and going outside taking deep breaths of fresh air. Discussed taking vitamin C, vitamin D and Zinc. Patient encouraged to rest, stay hydrated and go to the emergency room if he develops any chest pressure, difficulty breathing or has oxygen levels less than 90%. His was going to get him a pulse ox machine to check. We will order an x-ray to evaluate for post viral pneumonia however unlikely since he just completed a Z-Akbar. Discussed how Decadron is not beneficial unless patients are requiring hospitalization and oxygen. Patient and were in agreement with plan. The patient is advised to make an appt with PCP in 3-5 days to discuss ongoing symptoms/ further management if needed. The patient is also advised to go to the ED immediately for any worsening symptoms. The patient understood and agreed with this plan. The patient was given discharge instructions and all questions were answered prior to DH team departure. The details of this patient case and the plan of care were discussed with Dr. Agrawal regarding indications for steroids in the community. Current recommendations is that steroids are only beneficial in hospitalized patients requiring oxygen. In order to obtain further information and compare any laboratory results/values, I have accessed patient records on the [facility]. This information was pertinent in my medical decision making today. Proper Personal Protective Equipment (PPE), including gloves, eye protection, N95 mask, gown, and shoe covers were donned and doffed appropriately and all equipment cleaned using approved technique with germicidal disposable wipes prior to and after care of this patient according to [facility] hospital's infection prevention protocols. Time On Scene with Patient: 00:27:35 [email or web address] Not available 03/10/2020 17:28:43 Plan of Treatment Reminders Order Date Submit Date Provider Last Modified By Organization Details Last Modified Time Details Appointments None record ed. Lab None record ed. Referral None record ed. Procedures None record ed. Surgeries None record ed. Imaging None record ed. Medication Orders None record ed. Patient TargetsNo targets recorded. Patient InstructionsNo instructions recorded. Reason for Referral None Reported. Procedures Surgical History Date Name Laterality Status Provider Name and Address Organization Details Recorded Time Shoulder joint surgery completed Beti Alexander NP [address], [place], [address], [place] [facility] 03/10/2020 11:29:33 Imaging Results None recorded. Procedure Notes None recorded. Medical Equipment None Reported. Allergies Allergen ID Allergen Name Allergen Category Reaction Reaction Severity Criticality Documentation Date Start Date Code Code System Note Provider Name and Address Organization Details Recorded Time [id number] Product containin g penicilli n (product) medicatio n Not available Not available Not available 03/10/2020 [id number] SNOMED Beti Alexander NP [address], [place], [address], [place] [facility] 0 12:06:39 Medications Name Sig Start Date Stop Date Status Note LastModified by Organization Details LastModified Time prednisone 10 mg tablet PLEASE SEE ATTACHED FOR DETAILED DIRECTION S active Not Available Not Available No t Available ibuprofen 800 mg tablet TAKE 1 TABLET BY MOUTH THREE TIMES A DAY active Not Available Not Available No t Available hydrocodone 5 mg-acetamin ophen 325 mg tablet TAKE 1 TABLET BY MOUTH EVERY 6 HOURS NEEDED FOR PAIN. DO NOT DRIVE WHILE TAKING MEDICATIO N. active Not Available Not Available No t Available morphine ER 30 mg tablet,exte nded release TAKE 1 TABLET BY MOUTH EVERY 12 HOURS 03/10 completed Not Available Not Available Not Available lorazepam 0.5 mg tablet TAKE 1 TABLET BY MOUTH EVERY DAY AT BEDTIME active Not Available Not Available No t Available tamsulosin 0.4 mg capsule TAKE 1 CAPSULE BY MOUTH NIGHTLY active Not Available Not Available No t Available gabapentin 300 mg capsule TAKE 1 CAPSULE BY MOUTH 3 TIMES A DAY active Not Available Not Available No t Available albuterol sulfate HFA 90 mcg/actuati on aerosol inhaler INHALE 2 PUFFS FOUR TIMES DAILY NEEDED FOR WHEEZING active Not Available Not Available No t Available finasteride 5 mg tablet TAKE 1 TABLET BY MOUTH EVERY DAY active Not Available Not Available No t Available naproxen 500 mg tablet TAKE 1 TABLET BY MOUTH TWICE A DAY active Not Available Not Available No t Available oxycodone 5 mg tablet TAKE 2 TABLETS BY MOUTH EVERY 4 HOURS X 7 DAYS NEEDED 03/10 completed Not Available Not Available Not Available rosuvastati n 5 mg tablet TAKE 1 TABLET BY MOUTH DAILY AT BEDTIME active Not Available Not Available No t Available PreviDent 5000 Booster Plus 1.1 % dental paste USE DIRECTED AT NIGHT BRUSH THEN SPIT OUT.DONT RINSE,EAT OR DRINK FOR 30 MINS AFTER active Not Available Not Available No t Available Fluzone Quad (PF) 60 mcg (15 mcg x 4)/0.5 mL IM syringe [facility] active Not Available Not Available No t Available Vitals Date Recorded Heart rate Oxygen saturation Oxygen saturation in Arterial blood by Pulse oximetry Body temperature Respiratory rate Systolic And Diastolic Provider Name and Address Organization Details Last Updated DateTime 0 90 /min 95 % 95 % 99.8 [degF] 20 /min 122/76 mm[Hg] Not Available [facility] 0 11:54:07 Social History Question Answer Notes LastModified by Organizat ion Details LastModified Time Tobacco Smoking Status Never Smoker Beti Alexander NP [address] [place], [address], [place] [facility] 03/10/2020 11:32:32 What Is Your Code Status? Full Code [email or web address] Information not available 03/10/2020 Sex: Unknown Functional Status None recorded. Mental Status None recorded. Family History Relationship Description Onset Age of this Age Resolved Age Notes LastModified by Organization Details LastModified Time Father Coronary arterioscler osis [email or web address] Not available 2019 12:15:21 Medical History Condition Response Diabetes N Coronary Artery Disease N High Cholesterol Y Pulmonary Embolism N Cancer Y Hypertension Y Stroke N Asthma N COPD N Depression N Kidney Disease N Past Encounters Encounter ID Performer Location Encounter Start Date Encounter Closed Date Diagnosis/Indication Diagnosis SNOMED-CT Code Diagnosis ICD10 Code Diagnosis Note [id number] Beti Alexander NP [facility] [address] [place] [address] 03/10/2020 11:44:39 03/11/2020 17:26:01 Cough with fever [id number] R05 COVID-19 910837193 U07.1 Health Concerns Section Related Observation LastModified by Organization Detai ls LastModified Time None Recorded Concern Status LastModified by Organization Details LastModified Time None Recorded Advance Directives Directive None Recorded Payers Insurance Date Sequence Insurance Name Policy Number Policy Urena Covered Member ID Urena Member ID Guarantor Name 03/10/[address] [place] [address] [id number] Marino Miller [id number] Marino Miller 03/11/2020 1 [facility] Marino Miller [id number] Marino Miller 03/10/2020 1 *SELF PAY* Marino Miller [id number] Marino Miller 03/11/2020 1 [facility] [id number] Marino Miller [id number] Marino Miller 03/10/2020 1 [facility] [id number] Marino Miller [id number] Marino Miller Notes Date Note Type Note Provider Name and Address Organization Details Recorded Time 03/10/2020 text/html This is a 54-year-old male who [facility] with a past history of testicular cancer & asthma as a child, high cholesterol, and hypertension. He began having cough, body aches, headache last WednesdayMarch 05, he tested positive for COVID-19 on March 06. He had just completed a Prednisone taper on 03/05 prescribed for prolonged shoulder pain s/p R shoulder replacement in November. He has had fevers as high as 102-103 degrees 2 times a day that break with Tylenol. He reports a decrease sense of smell and taste. He has a productive cough with greenish brown/blood tinged sputum. He did just complete the Z-Akbar that was prescribed by his PCP. He is also taking Singulair daily. He called today to be evaluated and was hoping to be prescribed Decadron. He reports chest soreness worse with coughing, denies any difficulty breathing or rashes. Denies any nausea, vomiting, or diarrhea. Reports normal appetite, staying hydrated. Beti Alexander, RAO [address] [place] [address] [place], [address], [place] [facility] 03/10/2020 17:28:53
== END 2024-10-03 16:56 | disposition home or self-care (01) ==
LOC: HO.HUSH 16:17
PROVIDERS: PCP Internal Medicine; Visit Provider Urology
DX: N40.0 Benign prostatic hyperplasia without lower urinary tract symptoms (principal); R97.20 Elevated prostate specific antigen [PSA]; C62.90 Malignant neoplasm of unspecified testis, unspecified whether descended or undescended
CPT/HCPCS: 98006